=== PATIENT | female | born 1995 | race Caucasian/White ===

== ENCOUNTER 2016-08-28 06:59 | Emergency (ER) | payer OTHER ==
[2016-08-28 08:16] LABS: BASO % 0.1 % (0.1-1.2); EOS % 0.1 % (0.7-5.8); GRAN # 16.8 10_X3_uL (1.6-6.1); GRAN % 79.2 % (34.0-71.1); HEMOGLOBIN 11.9 g/dL (11.2-15.7); LYMPH # 2.7 10_X3_uL (1.2-3.7); LYMPH % 12.7 % (19.3-51.7); MEAN CORPUSCULAR HEMOGLOBIN 27.2 pg (27.0-33.0); MEAN CORPUSCULAR HGB CONC 33.1 g/dL (32.0-36.0); MEAN CORPUSCULAR VOLUME 82.2 fL (79-95); MEAN PLATELET VOLUME 10.3 fl (7.5-11.5); MONO # 1.7 10_X3_uL (0.2-0.9); MONO % 7.9 % (4.7-12.5); PLATELET COUNT 333 x10_3/uL (182-369); RED BLOOD COUNT 4.38 x10_6/uL (3.9-5.2); RED CELL DISTRIBUTION WIDTH 14.6 % (11.7-14.4)
[2016-08-28 08:24] LABS: WHITE BLOOD COUNT 21.2 x10_3/uL (4.0-10.0)
[2016-08-28 08:32] LABS: ALBUMIN 3.8 gm/dL (3.4-5.0); ALKALINE PHOSPHATASE 89 U/L (50-136); ALT/SGPT 13 U/L (3.5-33.9); AST/SGOT 12 U/L (7.04-26.96); BILIRUBIN,TOTAL 0.77 mg/dL (0.0-1.0); BLOOD UREA NITROGEN 7 mg/dL (7-18); CALCIUM 9.3 mg/dL (8.7-10.7); CARBON DIOXIDE 20 mmol/L (21-32); CREATININE 0.7 mg/dL (0.6-1.3); GLUCOSE,RANDOM 125 mg/dL (70-99); POTASSIUM 3.8 mmol/L (3.5-5.1); SODIUM 140 mmol/L (136-145); TOTAL PROTEIN 7.7 gm/dL (6.4-8.2)
== END 2016-08-28 08:55 | disposition home or self-care (01) ==
LOC: ER 06:59
PROVIDERS: Emergency Medicine
DX: J03.00 Acute streptococcal tonsillitis, unspecified (principal); R00.0 Tachycardia, unspecified
CPT/HCPCS: 36415; 80053; 85025; 96372; 99282-25; J2930